=== PATIENT | female | born 1995 | race African-American/Black ===

== ENCOUNTER 2020-12-28 17:32 | Emergency (ER) | payer BC, SELFPAY ==
--- NOTE | ~2020-12-28 | CT_ITS ---
EXAMINATION: CT abdomen pelvis w con DATE: 12/28/2020 23:56 INDICATION: Abdominal pain TECHNIQUE: Computed tomography (CT) of the abdomen and pelvis was performed with 100 mL Omnipaque-350 intravenous contrast. Automated exposure control and iterative reconstruction technique were employe d. The dose-length product was 1260.44 mGy-cm. COMPARISON: None FINDINGS: Mild dependent atelectasis at the posterior sulcus of the left lower lobe. Heart size is normal. No p ericardial or pleural effusion. Liver, gallbladder, spleen, pancreas, bilateral adrenal glands and ki dneys are normal. Fluid throughout the colon consistent with diarrhea. No abnormal bowel wall thicken ing or obstruction. Appendix is normal. Bladder, anteverted uterus and bilateral adnexa are unremarka ble. No free intraperitoneal gas or fluid. No pathologically enlarged abdominal or pelvic lymphadenop athy. Mild degenerative skeletal changes in the spine and bilateral hips. IMPRESSION: 1. Diarrhea of indeterminate etiology. No other acute intra-abdominal/pelvic process. Reviewed, dictated and finalized at location A. WORKER IMPRESSION: 1. Diarrhea of indeterminate etiology. No other acute intra-abdominal/pelvic pr ocess.
[2020-12-28 18:35] VITALS: BP 129/70; PULSE 110; RESP 20; TEMP 36.6; O2SAT 100
[2020-12-28 18:45] LABS: Glucose Point of Care 216 mg/dl (65-105)
[2020-12-28 19:52] LABS: Basophils Absolute Auto 0.1 K/mm3 (0.0-0.1); Basophils Percent Auto 0.5 % (0.2-1.2); Hematocrit 47.5 % (37.0-47.0); Hemoglobin 15.4 g/dL (12.0-15.0); Immature Granulocyte Absolute 0.12 K/mm3 (0.00-0.031); Immature Granulocyte Percent A 0.5 % (0-0.5); Lymphocytes Absolute Auto 1.17 K/mm3 (0.9-3.2); Lymphocytes Percent Auto 4.7 % (18.3-44.2); Mean Corpuscular HGB Conc 32.4 g/dl (32-36); Mean Corpuscular Hemoglobin 27.4 pg (26-34); Mean Corpuscular Volume 84.4 fl (80-100); Mean Platelet Volume 11.2 fl (7.4-10.4); Monocytes Absolute Auto 1.5 K/mm3 (0.1-0.6); Monocytes Percent Auto 5.9 % (2.6-8.5); Neutrophils Absolute Auto 21.9 K/mm3 (1.3-6.7); Neutrophils Percent Auto 88.4 % (45.5-73.1); Platelet Count Result 312 k/mm3 (150-375); Red Blood Count 5.63 M/mm3 (4.2-5.4); Red Cell Distribution Width 13.5 % (11.5-14.5); White Blood Count 24.8 K/mm3 (4.5-10.0)
[2020-12-28 20:05] LABS: Alanine Aminotransferase 26 U/L (4-35); Albumin Level 5.1 g/dL (3.5-5.1); Alkaline Phosphatase 75 U/L (38-126); Anion Gap 15 mmol/L (8-16); Aspartate Amino Transferase 33 U/L (14-36); Bilirubin,Total 0.3 mg/dL (0.2-1.3); Blood Urea Nitrogen 9 mg/dL (7-17); Carbon Dioxide 24 mmol/L (22-30); Chloride 103 mmol/L (98-107); Estimated CRCL calculation 122 ml/min; Estimated Glomerular Filt Rate > 60; Glucose 204 mg/dL (65-110); Magnesium 1.7 mg/dL (1.6-2.3); Phosphorus 3.9 mg/dL (2.5-4.5); Potassium 4.5 mmol/L (3.4-5.0); Sodium 142 mmol/L (137-145)
[2020-12-28 20:09] LABS: Beta-Hydroxybutyrate/Acetoacetate 0.27 mmol/L (0.02-0.27)
[2020-12-28 22:07] VITALS: BP 114/67; PULSE 93; RESP 18; TEMP 37.1; O2SAT 98
--- NOTE | 2020-12-28 22:11 | ED.NAVMDI ---
HPI - Nausea/Vomiting/Diarrhea General Chief complaint: Nausea/Vomiting/Diarrhea Stated complaint: n/v/d Time Seen by Provider: 12/28/20 22:10 Source: patient Mode of arrival: ambulatory Limitations: no limitations History of Present Illness HPI Narrative: Patient is a 25-year-old female complaining of nausea, vomiting and diarrhea that started 2 hours ago. Patient also pain that her blood sugar was elevated 240s . Patient describes her vomitus as nonbilious, nonbloody. Patient describes her diarrhea as loose watery, nonbloody. Patient denies any chest pain, shortness of breath, abdominal pain, urinary symptoms, fever or chills. Related Data Allergies Allergy/AdvReac Type Severity Reaction Status Date / Time No Known Allergies Allergy Verified 12/28/20 22:13 Review of Systems Review of Systems: All systems reviewed & are unremarkable except as noted in HPI and below Constitutional: Constitutional: Denies body ache(s), Denies chills, Denies excessive sweating, Denies fatigue, Denies fever(s), Denies headache(s), Denies lethargy, Denies malaise, Denies weakness and Denies weight loss Eyes: Eyes: Denies blurry vision, Denies change in vision and Denies loss of vision ENT: Denies dizziness, Denies ear discharge, Denies headache(s), Denies lip swelling, Denies epistaxis, Denies nasal congestion, Denies neck pain, Denies throat swelling and Denies tongue swelling Cardiovascular: Cardiovascular: Denies chest pain, Denies chest pain at rest, Denies chest pain with activity, Denies diaphoresis, Denies rapid heart rate, Denies edema, Denies irregular heart rhythm, Denies lightheadedness, Denies palpitations, Denies dyspnea and Denies dyspnea on exertion Respiratory: Respiratory: Denies chest congestion, Denies cough, Denies hemoptysis, Denies dyspnea and Denies dyspnea on exertion Gastrointestinal: Gastrointestinal: Denies abdominal pain, Denies melena, Denies hematochezia and Denies hematemesis Musculoskeletal: Musculoskeletal: Denies abnormal gait, Denies deformity, Denies joint swelling, Denies limited range of motion, Denies neck pain and Denies numbness Neurologic: Denies Abnormal speech present, Denies abnormal gait, Denies confusion, Denies dizziness, Denies headache(s), Denies focal weakness, Denies loss of vision, Denies numbness, Denies Other visual disturbances, Denies Sensory deficit (Neuro) and Denies weakness Psychiatric: Psychiatric: Denies confusion, Denies depression, Denies auditory hallucinations, Denies homicidal ideation and Denies suicidal ideation Endocrine: Endocrine: Denies cold intolerance, Denies excessive sweating, Denies fatigue, Denies heat intolerance and Denies palpitations Hematologic/Lymphatic: Hematologic/Lymphatic: Denies easy bleeding and Denies easy bruising Allergic/Immunologic: Allergic/Immunologic: Denies lip swelling, Denies throat swelling and Denies tongue swelling PMFSH Comments Past medical history: Diabetes Family history: Diabetes Social history: Non-smoker no EtOH or drug use Exam Const: General: cooperative, healthy appearing, comfortable, no acute distress, well developed, alert and awake; No confusion Orientation/consciousness: oriented to person, oriented to place, oriented to time, patient oriented x3 and No confusion Limitations: no limitations HENMT: Head: normal to inspection, normocephalic and atraumatic Ears: hearing grossly normal bilaterally, TM normal on the right and TM normal on the left General nose exam: Normal external nose present, Normal nares present and No nasal discharge present Face and sinus: normal facial exam Mouth: Yes Normal oral and palatal mucosa present, Yes lip normal, Yes tongue normal and Yes oropharynx normal Throat: posterior oropharynx normal, tonsils normal and uvula midline Eyes: General: appearance normal, both eyes and all related structures Pupils: Equal, round and reactive pupils present EOM: EOMs intact bilaterally Neck: Neck: normal v
[2020-12-28 23:03] LABS: Glucose Point of Care 146 mg/dl (65-105)
[2020-12-28 23:18] LABS: Add Urine Microscopic? YES; Appearance Urine Cloudy (Clear); Bilirubin Urine Negative (Negative); Blood Urine 2+ (Negative); Color Urine Yellow (Yellow); Glucose Urine UA 1+ mg/dL (Negative); Ketones Urine 1+ mg/dL (Negative); Leukocyte Esterase Ur Negative LEU/UL (Negative); Mucus Urine Moderate /lpf; Nitrate Urine Negative (Negative); Protein Urine 2+ mg/dL (Negative); RBC Urine 0-2 /hpf (0-2); Specific Grav Ur 1.028 (1.001-1.035); Squamous Epithelial Cell Urine Rare /hpf (Few); Urobilinogen Urine Negative mg/dL (<2.0); WBC Urine 0-3 /hpf
[2020-12-28] MEDS: SODIUM CHLORIDE 0.9% IV 1,000 ML 999 ML IV CONT (23:33)
--- NOTE | 2020-12-28 23:41 | PCRCNOTE ---
Unable to obtain ABG after multiple attempts. Physician notified.
[2020-12-29 00:26] LABS: Lactic Acid Reflex 1.7 mmol/L (0.7-2.1)
[2020-12-29 00:34] VITALS: BP 115/75; PULSE 89; RESP 20; O2SAT 98
[2020-12-29] MEDS: LACTATED RINGERS 1,000 ML 999 ML IV CONT (00:48)
[2020-12-29] MEDS: metroNIDAZOLE 500 MG/ISO 100ML 500 MG/100 ML BAG 100 MG IVPB (01:22)
[2020-12-29 02:21] VITALS: BP 125/74; PULSE 94; RESP 16; O2SAT 100
== END 2020-12-29 02:25 | disposition home or self-care (01) ==
PROVIDERS: Emergency Medicine; Emergency Provider Emergency Medicine
DX: K52.9 Noninfective gastroenteritis and colitis, unspecified (principal); E11.9 Type 2 diabetes mellitus without complications
CPT/HCPCS: 36415; 74177; 80053; 81001; 81025; 82010; 82948; 83605; 83735; 84100; 85025; 96361; 96365; 96367; 99284; J0696; J7030; J7120; Q9967

== ENCOUNTER 2024-10-18 18:03 | Emergency (ER) | payer OTHER, SELFPAY ==
[2024-10-18] VITALS (27 sets, daily range): BP systolic 106–147; BP diastolic 60–113; PULSE 77–122; RESP 18–20; TEMP 36.6–36.8; O2SAT 87–100
--- NOTE | ~2024-10-18 | CT_ITS ---
EXAMINATION: CT abdomen pelvis w con DATE: 10/18/2024 20:36 INDICATION: Epigastric pain TECHNIQUE: Computed tomography (CT) of the abdomen and pelvis was performed without intravenous contrast. The dose-length product was 1237.28 mGy-cm. Automated exposure control and iterative reconstruction technique were employed. COMPARISON: CT dated 12/28/2020 FINDINGS: Lung bases unremarkable. Heart size normal. Fatty infiltration of the liver. Gallbladder present. The spleen, pancreas, adrenal glands and kidneys are unremarkable. Nonobstructive bowel gas pattern. No free air or free fluid. No significant vascular abnormality. No lymphadenopathy. There is mild thickening of the gastric wall which may be due to underdistention or gastritis. No acute osseous abnormality. IMPRESSION: 1. Mild thickening of the gastric wall which may be due to underdistention or gastritis. Clinically correlate. Reviewed, dictated and finalized at location O. IMPRESSION: 1. Mild thickening of the gastric wall which may be due to underdistention or g astritis. Clinically correlate.
[2024-10-18 19:34] LABS: Hematocrit 42.7 % (37.0-47.0); Hemoglobin 13.9 g/dL (12.0-15.0); Immature Granulocyte Percent A 0.5 % (0-0.5); Lymphocytes Absolute Auto 1.36 K/mm3 (0.9-3.2); Mean Corpuscular HGB Conc 32.6 g/dl (32-36); Mean Corpuscular Hemoglobin 26.2 pg (26-34); Mean Corpuscular Volume 80.4 fl (80-100); Nucleated Red Blood Cells Absolute Auto 0.000 K/mm3 (0.0-0.012); Nucleated Red Blood Cells Perc 0.0 % (0.0-0.2); Platelet Count Result 288 k/mm3 (150-375); Red Blood Count 5.31 M/mm3 (4.2-5.4); White Blood Count 9.5 K/mm3 (4.5-10.0)
--- NOTE | 2024-10-18 19:39 | ED_ITS ---
HPI - General Adult General Chief complaint: Nausea/Vomiting/Diarrhea Stated complaint: N,V, dehydration headache Time Seen by Provider: 10/18/24 19:12 History of Present Illness HPI narrative: Patient is a 29-year-old female who presents emergency department this evening complaining of nausea, vomiting, dehydration and headache. States that her symptoms started this morning. Also complains of epigastric pain and states that in the past she has had similar symptoms and was diagnosed with colitis. Denies any sick contacts at home or anyone at home with similar symptoms. Any fevers or chills. There are no additional modifying, alleviating, or precipitating factors at this time. Related Data Allergies Allergy/AdvReac Type Severity Reaction Status Date / Time No Known Allergies Allergy Verified 10/18/24 18:04 Review of Systems 2 Review of Systems: All systems are reviewed and are negative unless stated otherwise in the HPI. Exam 2 Narrative: General: Alert, awake, afebrile, in no acute distress. HEENT: PERRL, no rhinorrhea, no post nasal drip, oropharynx clear. Neck: Trachea midline, no JVD, no lymphadenopathy. Cardiovascular: Tachycardic with regular rhythm, no murmurs, rubs or gallops, no peripheral edema. Respiratory: Clear to auscultation bilaterally, no tachypnea, no wheezing, no rhonchi, no rubs, no respiratory distress. Abdomen: Soft, nontender, nondistended, no rebound, no guarding, no peritoneal signs. Musculoskeletal: No joint swelling or deformity, normal muscle tone. Skin: No rashes or petechia, no signs of infection. Psychiatric: Alert and oriented, normal behavior and judgment for situation. Neurological: Alert and oriented to person, place, and time. Follows all commands. No focal deficits, speech is clear and fluent. Course Vital Signs Vital signs: Vital Signs Temperature 98.2 F 10/18/24 18:06 Pulse Rate 122 H 10/18/24 18:06 Respiratory Rate 10/18/24 18:06 Blood Pressure 116/78 10/18/24 18:06 Pulse Oximetry 99 10/18/24 18:06 Oxygen Delivery Room Air 10/18/24 18:06 Temperature 98.2 F 10/18/24 18:06 Pulse Rate 122 H 10/18/24 18:06 Respiratory Rate 20 10/18/24 18:06 Blood Pressure 116/78 10/18/24 18:06 Pulse Oximetry 99 10/18/24 18:06 Oxygen Delivery Room Air 10/18/24 18:06 Medical Decision Making MDM Narrative Medical decision making narrative: The patient was evaluated by myself in the emergency department. History is obtained from patient who is an independent historian and physical exam was performed. External medical records were reviewed at this time. IV was established and pertinent tests were ordered. Patient was administered 2 L IV fluid bolus with normal saline, 2 mg IV morphine for pain and 4 mg IV Zofran for nausea. Laboratory results obtained revealing no acute process. Imaging studies obtained included CT abdomen pelvis with IV contrast which was independently interpreted by me revealing: IMPRESSION: 1. Mild thickening of the gastric wall which may be due to underdistention or gastritis. Clinically correlate. Differential diagnosis considerations include acute viral syndrome, dehydration, electrolyte derangements, gastroenteritis. Comorbidities impacting this visit include none. I have evaluated and discussed social determinants of health with the patient that could potentially impact subsequent diagnosis and treatment plans. On repeat assessment of the patient, reevaluation revealed that the patient is doing well and is in no acute distress. Patient symptoms have improved since she arrived to our emergency department. Repeat vital signs were all reviewed and noted to be stable. Differential diagnosis and treatment plan were discussed with the patient at bedside. Patient agrees with discussion and after shared medical decision making agrees with admission. All questions were answered to the patient's satisfaction. Patient will follow up with her PCP in 3-5 days. A script for Zofran was sent to patient's pharmacy to use as needed for nausea/vomiting. Patient was provided with strict return precautions and instructed to return to the emergency department if any new or worsening symptoms develop. The patient was discharged in stable condition. Vital Signs Vital Signs: Vital Signs Temperature 98.2 F 10/18/24 18:06 Pulse Rate 122 H 10/18/24 18:06 Respiratory Rate 20 10/18/24 18:06 Blood Pressure 116/78 10/18/24 18:06 Pulse Oximetry 99 10/18/24 18:06 Oxygen Delivery Room Air 10/18/24 18:06 Temperature 98.2 F 10/18/24 18:06 Pulse Rate 122 H 10/18/24 18:06 Respiratory Rate 20 10/18/24 18:06 Blood Pressure 116/78 10/18/24 18:06 Pulse Oximetry 99 10/18/24 18:06 Oxygen Delivery Room Air 10/18/24 18:06 Lab Data 10/18/24 19:30 10/18/24 19:30 Labs: Lab Results 10/18/24 Range/Units 19:30 WBC 9.5 (4.5-10.0) K/mm3 RBC 5.31 (4.2-5.4) M/mm3 Hgb 13.9 (12.0-15.0) g/dL Hct 42.7 (37.0-47.0) % MCV 80.4 (80-100) fl MCH 26.2 (26-34) pg MCHC 32.6 (32-36) g/dl RDW 14.6 H (11.5-14.5) % Plt Count 288 (150-375) k/mm3 MPV 10.4 (7.4-10.4) fl Immature Gran % (Auto) 0.5 (0-0.5) % Neut % (Auto) 80.2 H (45.5-73.1) % Lymph % (Auto) 14.3 L (18.3-44.2) % [place] % (Auto) 4.7 (2.6-8.5) % Eos % (Auto) 0.0 (0-4.4) % Baso % (Auto) 0.3 (0.2-1.2) % Lymph # (Auto) 1.36 (0.9-3.2) K/mm3 [place] # (Auto) 0.5 (0.1-0.6) K/mm3 Eos # (Auto) 0.0 (0-0.3) K/mm3 Baso # (Auto) 0.0 (0.0-0.1) K/mm3 Abs Immat Gran (auto) 0.05 H (0.00-0.031) K/mm3 Absolute Neuts (auto) 7.6 H (1.3-6.7) K/mm3 Absolute Nucleated RBC 0.000 (0.0-0.012) K/mm3 Nucleated RBC % 0.0 (0.0-0.2) % Sodium 136 L (137-145) mmol/L Potassium 3.7 (3.4-5.0) mmol/L Chloride 101 (98-107) mmol/L Carbon Dioxide 25 (22-30) mmol/L Anion Gap 10 (4-12) mmol/L BUN 10 (7-17) mg/dL Creatinine 0.64 L (0.7-1.0) mg/dL Estim Creat Clear Calc 138 ml/min Estimated GFR > 60 (59 - ) Glucose 221 H (65-110) mg/dL Lactic Acid 1.3 (0.7-2.0) mmol/L Calcium 8.8 (8.4-10.2) mg/dL Magnesium 1.7 (1.6-2.3) mg/dL Total Bilirubin 0.5 (0.2-1.3) mg/dL AST 34 (14-36) U/L ALT 31 (6-35) U/L Alkaline Phosphatase 79 (38-126) U/L Total Protein 8.1 (6.3-8.2) g/dL Albumin 4.4 (3.5-5.1) g/dL Lipase 93 (23-300) U/L Serum HCG, Qual Negative Discharge Plan Discharge Clinical Impression: Nausea & vomiting Patient Disposition: Home Condition: Improved Instructions: Antibiotic Form, Acute Nausea and Vomiting (ED) Additional Instructions: Please follow-up with the family doctor within the next 3-5 days. Return to the emergency department if any new or worsening symptoms develop. Take the prescribed Zofran as needed for nausea/vomiting. Patient Language: Swazi Prescriptions: New ondansetron 4 mg tablet,disintegrating 4 mg PO Q8H PRN (Reason: nausea and vomiting) Qty: 10 0RF No Action metronidazole 500 mg tablet 500 mg PO Q8H Qty: 21 0RF Follow-up/Referrals: Stephy Cespedes MD [Physician, Family Practice] - 3 Days PHYSICIAN NOT ON STAFF,NONSTAFF [Primary Care Provider] Time of Disposition: 20:49
[2024-10-18 19:41] LABS: SPREG INTERNAL CONTROL Positive; Serum Qual hCG Negative
[2024-10-18] MEDS: SODIUM CHLORIDE 0.9% IV 1,000 ML 999 ML IV CONT ×2 (19:42→21:03)
[2024-10-18] MEDS: ONDANSETRON INJ 4 MG/2 ML VIAL IV PUSH (19:43)
[2024-10-18] MEDS: MORPHINE SULFATE (*CRX) 2 MG/ML INJ IV PUSH (19:44)
[2024-10-18 19:47] LABS: Alanine Aminotransferase 31 U/L (6-35); Albumin Level 4.4 g/dL (3.5-5.1); Alkaline Phosphatase 79 U/L (38-126); Anion Gap 10 mmol/L (4-12); Aspartate Amino Transferase 34 U/L (14-36); Bilirubin,Total 0.5 mg/dL (0.2-1.3); Blood Urea Nitrogen 10 mg/dL (7-17); Calcium 8.8 mg/dL (8.4-10.2); Carbon Dioxide 25 mmol/L (22-30); Chloride 101 mmol/L (98-107); Estimated CRCL calculation 138 ml/min; Estimated Glomerular Filt Rate > 60; Glucose 221 mg/dL (65-110); Lipase 93 U/L (23-300); Magnesium 1.7 mg/dL (1.6-2.3); Potassium 3.7 mmol/L (3.4-5.0); Sodium 136 mmol/L (137-145); Total Protein 8.1 g/dL (6.3-8.2)
== END 2024-10-18 23:17 | disposition home or self-care (01) ==
PROVIDERS: Emergency Provider Emergency Medicine
DX: R11.2 Nausea with vomiting, unspecified (principal)
CPT/HCPCS: 36415; 74177; 80053; 83605; 83690; 83735; 84703; 85025; 96361; 96374; 96375; 99284; J2270; J2405; J7030; Q9967

== ENCOUNTER 2024-11-04 12:25 | Emergency (ER) | payer OTHER, SELFPAY ==
--- OUTSIDE RECORDS SUMMARY | 2019-10-28 06:04 | XMS_ITS | Continuity of Care Document ---
Author Organization [facility] Address [address] [place] [address] Phone Care Team Providers Care Superintendent Service Name Role Phone René Turner MD Unavailable Unavailable Advance Directives Directive Yes / No Effective Date File Name No Information Encounters Encounter Description Practice Location Reason(s) For Visit Diagnoses Date Provider Providers Copied on Encounter [facility] , [address], [place], [place], [id number], [place] tel:[phone] [facility] [place] No Information Johnny Merritt. [address], [place], [place], [id number], [place]. tel:[phone] Family History Family Member Type Diagnosis Age At Onset No Information Payers Payer name Insurance type Covered libertarian ID Authoriza tion(s) No Information Social History Type Description Quantity Date Captured Comments Sex Female Smoking Status No Information Chief Complaint And Reason For Visit No Information Reason For Referral Reason For Referral No Information History Of Present Illness Encounter Date Complaint History Of Prese nt Illness No Information Functional Status Date Functional Assessmen t No Information Instructions Date Instruction Additional Infor mation No Information Assessments Type Assessment Date No Information Patient Care Teams Name Effective Dates (start - stop) Status Members No Information
--- OUTSIDE RECORDS SUMMARY | 2019-10-28 06:04 | XMS_ITS | Continuity of Care Document ---
Author Organization [facility] Address [address] [place] [address] Phone Care Team Providers Care Lodging House Keeper Name Role Phone René Turner MD Unavailable Unavailable Advance Directives Directive Yes / No Effective Date File Name No Information Encounters Encounter Description Practice Location Reason(s) For Visit Diagnoses Date Provider Providers Copied on Encounter [facility] , [address], [place], [place], [id number], [place] tel:[phone] [facility] [place] No Information Johnny Merritt. [address], [place], [place], [id number], [place]. tel:[phone] Family History Family Member Type Diagnosis Age At Onset No Information Payers Payer name Insurance type Covered alliance party ID Authoriza tion(s) No Information Social History [...]
--- NOTE | ~2024-11-04 | CT_ITS ---
Exam: CT abdomen and pelvis with contrast Clinical History: [Epigastric pain. Nausea and vomiting ] Comparison: [ 10/18/2024] Technique: Multiple axial CT images of the abdomen and pelvis were obtained with IV contrast. Sagittal and coronal reformatted images were obtained. FINDINGS: Lung bases: [Small opacities in the lower lungs. ] Liver: [Fatty liverNo mass.] [ No intrahepatic biliary duct dilatation.] Gallbladder: [ No wall thickening or stones.] Common bile duct: [ Normal caliber.] [ No stones.] Spleen: [ Within normal limits.] Pancreas: [ No mass. No pancreatic fluid collection.] Adrenals: [ No masses.] Kidneys: [ No masses. No hydronephrosis.][ ] Lymph nodes: [ No adenopathy in the abdomen or pelvis.] Stomach, small bowel and colon: [ No bowel wall thickening or obstruction.] Peritoneum cavity: [ No mesenteric fat stranding or fluid.] Bladder: [ Unremarkable.] Osseous structures: [ No acute fracture or destructive lesion.] [ Multilevel degenerative change in the visualized spine.] Abdominal aorta: [ No aneurysm.] Additional findings: [ None of significance.] IMPRESSION: 1. No CT evidence for an acute process in the abdomen and pelvis at this time. 2. Fatty liver. Reviewed, dictated and finalized at location Q.
--- NOTE | ~2024-11-04 | CT_ITS ---
EXAMINATION: CT BRAIN W/O DATE: 11/04/2024 15:29 INDICATION: Left periorbital headache. Nausea and vomiting. TECHNIQUE: Computed tomography (CT) of the head was performed without intravenous contrast. The dose-length product was 605.33 mGy-cm. Automated exposure control and iterative reconstruction technique were employed. COMPARISON: No prior studies for comparison. FINDINGS: Normal brain parenchymal volume for age. Normal rod-white differentiation. No acute intracranial hemorrhage, infarction, mass or mass effect. No ventriculomegaly or midline shift. Midline sagittal images demonstrate a normal corpus callosum, craniovertebral junction and sella turcica. Basilar cisterns are patent. Paranasal sinuses and mastoids are pneumatized. No depressed skull fractures. IMPRESSION: 1. No acute intracranial abnormality. Reviewed, dictated and finalized at location O.
[2024-11-04 12:31] VITALS: BP 142/95; PULSE 108; RESP 20; TEMP 36.8; O2SAT 98
--- OUTSIDE RECORDS SUMMARY | 2024-11-04 12:57 | XMS_ITS | Clinical Summary ---
Author Organization [facility] [employer] Address [address] [place] [address] Care Team Providers Care Customer Account Specialist Name Role Phone Shaye Appiah MD Primary Care Provider [phone] Source Comments [facility] [employer],non-owned Affiliates and Associated Physician Practices is amultiple site organization consisting of ambulatory clinics and hospital sitesin [place], [place], [place] and [place]. This disclosure is being madepursuant to the Care Everywhere program and may not contain all information available regarding this patient. Last updated 17.[facility] [employer] Allergies No known active allergies Medications * Be aware that medications may not be up to date on this document. Alwaysverify current medications with the patient. Blood Glucose Monitoring Suppl (ONE TOUCH ULTRA MINI) W/DEVICE KITIndications:D iabetes mellitus Use for blood glucose monitoring. 1 Kit 1 12/17/19 11 Active ONETOUCH DELICA LANCETS 30G MISCIndications: Type 2 diabetes mellitus with hyperglycemia, without long-term current use of insulin (HCC) Use 1 Each 2 times daily 200 Each 11 01/01/20 20 Active metFORMIN ER 24hr (Glucophage XR) 500 MG tabletIndication s:Type 2 diabetes mellitus with hyperglycemia, without long-term current use of insulin ([facility]) Take 2 (two) tablets by mouth every evening 90 tablet 1 05/01/19 25 Active Semaglutide (2 MG/DOSE) 8 MG/3ML Subcutaneous Solution Pen-injector (Ozempic (2 MG/DOSE))Indicat ions:Type 2 diabetes mellitus with hyperglycemia, without long-term current use of insulin ([facility]) Inject 2 (two) mg subcutaneously every 7 days 9 mL 1 05/01/19 25 Active blood glucose (ONETOUCH ULTRA TEST STRIPS) test stripIndications :Type 2 diabetes mellitus with hyperglycemia, without long-term current use of insulin (HCC) Use 2 times daily 200 strip 05/01/19 Active spironolactone (Aldactone) 25 MG tablet Take 1 (one) tablet by mouth once daily 90 tablet 05/01/19 25 Active Active Problems Problem Noted Date Diagnosed Date Type 2 diabetes mellitus wit hout complication, without long-term current use of insulin 04/30/2024 Hirsutism 04/30/2024 Obesity 04/30/2024 PCOS (polycystic ovarian syndrome) 02/23/2023 02/23/2023 Family history of colon cancer in father 024 Cervicitis 07/03/2015 Diabetes mellitus 12/14/2010 Overview (09/29/2011): Diagnosed 12/14/2010 Resolved Problems Problem Noted Date Diagnosed Date Resolved Date Closed head injury 10/13/2019 5 Immunizations Immunization Administration Dates Next Due DTaP VACCINE IM (6wk-6yrs) 06/17/1999 Human Papilloma Virus Ninevalent Vaccine 019 Human Papilloma Virus Quadrivalent Vaccine 05/08,03/03/2017,09/10/2013 INFLUENZA VACCINE, QUADR. (F LUZONE; FLULAVAL; FLUARIX; AFLURIA QUADRIVALENT; 6MO+), 0.5 ML (IIV4) 12/22/2021 MMR VACCINE 06/17/1999 PNEUMOCOCCAL PCV20 CONJ VAC IM 12/22/2021 POLIO OPV 06/17/1999 Family History Medical History Relation Name Comments Cancer - Colon Father Diabetes Father steroid-induced Heart Failure Father Hypercholesterolemia Father Diabetes - Type 2 Maternal Grandmother Cancer - Breast Paternal Aunt great aunt Cancer - Breast Paternal Great-Grandmother Cancer - Colon Paternal Uncle Diabetes Sister Relation Name Status Comments Father Alive colon cancer di agnosed age 57 Maternal Grandfather Alive Maternal Grandmother Alive Mother Alive Paternal Aunt great aunt Paternal Grandfather Alive Paternal Grandmother Alive Paternal Great-Grandmother Paternal Uncle Alive diagnosed in late 40s Sister Alive Social History Tobacco Use Types Packs/Day Years Used Date Smoking Tobacco: Never Passive Smoke Exposure: Never Smokeless Tobacco: Never Tobacco Cessation:Counseling Given: Not Answered Alcohol Use Standard Drinks/Week Comments Yes 0 (1 standard drink = 0.6 oz pur e alcohol) occ AUDIT-C Answer Date Recorded Q1: How often do you have a drink containing alcohol? Never 07/06/2022 Q2: How many drinks containi ng alcohol do you have on a typical day when you are drinking? Patient does not drink Q3: How often do you have si x or more drinks on one occasion? Never 07/06/2022 PHQ-2 Answer Date Recorded Patient Health Questionnaire-2 Score 0 04/23/2024 Comments No Sex and Gender Information Value Date Recorded Sex Assigned at Female 02/12/2021 9:07 AM ILLUMINATOR Legal Sex Female 2:20 PM CDT Gender Identity Female 02/12/2021 9:07 AM ILLUMINATOR Sexual Orientation Straight 02/12/2021 9: 07 AM ILLUMINATOR Last Filed Vital Signs Vital Sign Reading Time Taken Comments Blood Pressure 118/80 04/30/2024 1:38 PM CDT Pulse 96 04/30/2024 1:38 PM CDT Temperature 36.9 C (98.4 F) 07/06/2022 12:47 AM CDT Respiratory Rate 14 07/06/2022 4:28 AM CDT Oxygen Saturation 98% 04/30/2024 1:38 PM CDT Inhaled Oxygen Concentration - - Weight 103.9 kg (229 lb) 04/30/2024 1:38 PM CDT Height 170.2 cm (5' 7) 04/30/2024 1:38 PM CDT Body Mass Index 35.87 04/30/2024 1:38 PM CDT Plan of Treatment Upcoming Encounters Date Type Department Care Team (Late st Contact Info) Description 11/22/2024 11:45 AM CDT Office Visit [facility] - Endocrinology [address] [address] [place] [id number] [address] Health Maintenance Due Date Last Done Comments DTAP/TDAP/TD VACCINES (2 - Tdap) 2013 06/17/1999 HEPATITIS B VACCINE (1 of 3 - 19+ 3-dose series) 2013 DIABETES RETINOPATHY SCREENING 10/18/2018 DIABETES - URINE PROTEIN SCREENING 02/14/2024 08/07/2023, 08/26/2021, 08/01/2019, Additional history exists COVID-19 VACCINE ( season) 2024 02/17/2021, 06/01/2020, 05/10/2020 INFLUENZA VACCINE (#1) 2024 12/22/2021 DIABETES-HGB A1C 10/31/2024 04/30/2024, , 07/20/2022, Additional history exists PAP SMEAR 02/22/2025 02/22/2022, 09/2020, 02/15/2019, Additional history exists DIABETES-SERUM CREATININE 04/30/20252024, 08/07/2023, 07/06/2022, Additional history exists DIABETES-FOOT EXAM WITH MONOFILAMENT 05/01/2025 05/01/2024 ZOSTER VACCINE (1 of 2) 2044 HPV VACCINE Completed 02/14/2018, 04/14, 03/03/2017, Additional history exists PNEUMOCOCCAL VACCINE Completed 12/22/2021 DEPRESSION SCREENING Completed 04/30/2024, 02/16/2023, 08/26/2021 HEPATITIS C SCREENING Completed 04/30/2024 , 02/22/2022, 08/25/2021, Additional history exists HIV SCREENING Completed 04/30/2024, 02/13, 02/22/2022, Additional history exists HIB VACCINE Aged Out No longer eligi ble based on patient's age to complete this topic MENINGOCOCCAL (Group B) VACCINE SHARED DECISION-MAKING Aged Out No longer eligible based on patient's age to complete this topic MENINGOCOCCAL GROUPS A/C/Y/W VACCINE Aged Out No longer eligible based on patient's age to complete this topic Procedures Procedure Name Priority Date/Time Associated Diagnosis Comments BASIC METABOLIC PANEL (CALCIUM TOTAL) Routine 04/30/2024 2:49 PM CDT HEPATITIS C ANTIBODY W RFLX PCR Routine 04/30/2024 2:49 PM CDT Well woman exam with routine gynecological exam Screening for venereal disease HIV-1 HIV-2 ANTIBODY + HIV P24 AG PANEL Routine 04/30/2024 2:49 PM CDT Well woman exam with routine gynecological exam Screening for venereal disease HEMOGLOBIN A1C - POINT OF CARE (AMB) Routine 04/30/2024 2:29 PM CDT Type 2 diabetes mellitus with hyperglycemia, without long-term current use of insulin MICROALB/CREAT RATIO URINE RANDOM PANEL 08/07/2023 12:44 PM CDT PAP IG LB+CT+NG+TV+HPV APTIMA RFLX Routine 02/22/2022 2:36 PM ILLUMINATOR History of abnormal cervical Pap smear Well woman exam with routine gynecological exam Screen for STD (sexually transmitted disease) History of HPV infection from Last 3 Months or Most Recently Relevant to Health Maintenance Results * HEPATITIS C ANTIBODY W RFLX PCR (04/30/2024 2:49 PM CDT) Hepatitis C Antibody Non Reactive Non Reactive [facility] ACCOUNT BILL Comment: Performed at: - [facility] [address] [id number] Histotechnologist: Jhonatan Ponce PhD, Phone: [phone] Interpretation Comment [facility] ACCOUNT BILL Comment: Not infected with HCV unless early or acute infection is suspected (which may be delayed in an immunocompromised individual), or other evidence exists to indicate HCV infection. Blood BLOOD SPECIMEN / Unknown 04/30/2024 2:49 PM CDT 04/30/2024 Narrative [facility] ACCOUNT BILL - 05/01/2024 8:11 AM CDT Performed at: - [facility] [address] [id number] Histotechnologist: Jhonatan Ponce PhD, Phone: [phone] us Arianna Chaney MOWER MECHANIC-SPRAY GUN REPAIRER HELPER LAB - CHEMISTRY ORDERABLE S Final Result Performing Organization Address City/[facility]/ZIP Co de Phone Number [facility] ACCOUNT BILL [address] [place] [address] * HIV-1 HIV-2 ANTIBODY + HIV P24 AG PANEL (04/30/2024 2:49 PM CDT) Pathologist [facility] HIV Screen 4th Generation w Reflex Non Reactive Non Reactive [facility] ACCOUNT BILL Comment: HIV-1/HIV-2 antibodies and HIV-1 p24 antigen were NOT detected. There is no laboratory evidence of HIV infection. HIV Negative Blood BLOOD SPECIMEN / Unknown 04/30/2024 2:49 PM CDT 04/30/2024 Narrative [facility] ACCOUNT BILL - 05/01/2024 9:10 AM CDT Performed at: 01 - [address] [id number] Histotechnologist: Jhonatan Ponce PhD, Phone: [phone] Arianna Chaney APRN-SPRAY GUN REPAIRER HELPER LAB - CHEMISTRY ORDERABLE S Final Result Performing Organization Address [facility] Co de Phone Number [facility] ACCOUNT BILL [address] [place] [address] * (ABNORMAL) BASIC METABOLIC PANEL (CALCIUM TOTAL) (04/30/2024 2:49 PM CDT) [facility] Glucose 131(H) 70 - 99 mg/dL [facility] INSURANCE BILL BUN 10 5.3 - 18.7 mg/dL [facility] INSURANCE BILL Creatinine 0.77 0.57 - 1.11 mg/dL [facility] INSURANCE BILL eGFR by CKD-EPI >90 >=90 mL/min/1.7 3 m2 [facility] INSURANCE BILL Sodium 140 136 - 145 mmol/L [facility] INSURANCE BILL Potassium 4.2 3.5 - 5.1 mmol/L [facility] INSURANCE BILL Chloride 106 98 - 107 mmol/L [facility] INSURANCE BILL CO2 26 22 - 29 mmol/L [facility] INSURANCE BILL Calcium 9.3 8.4 - 10.4 mg/dL [facility] INSURANCE BILL 04/30/2024 2:49 PM CDT 04/30/2024 Narrative [facility] INSURANCE BILL - 05/08/2024 11:11 AM CDT Performed at: [place] [address], [place] [id number] Histotechnologist: Saad Lezama [facility], Phone: [phone] us Marilee Nye MOWER MECHANIC-SPRAY GUN REPAIRER HELPER LAB - CHEMISTRY ORDERABLE S Final Result [facility] INSURANCE BILL [address] [place] [address] * HEMOGLOBIN A1C - POINT OF CARE (HgbA1C) (04/30/2024 2:29 PM CDT) [facility] Hemoglobin A1c POCT 7.9 % Expiration Date 01/24/25 Lot # [id number] QC Verified Yes Yes Blood BLOOD SPECIMEN / Unknown 04/30/2024 2:29 PM CDT us Marilee Nye MOWER MECHANIC-SPRAY GUN REPAIRER HELPER LAB - POINT OF CARE ORDER BOBO Final Result * MICROALB/CREAT RATIO URINE RANDOM PANEL (08/07/2023 12:44 PM CDT) Pathologist [facility] Creatinine Urine 229.54 mg/dL [facility] ACCOUNT BILL Microalbumin Urine 0.8 mg/dL [facility] ACCOUNT BILL Microalbumin/Crea tinine Ratio 3 <30 mg/g [facility] ACCOUNT BILL Comment: FASTING 08/07/2023 12:4 4 PM CDT 08/07/2023 Narrative Resulting Agency Comment Lab Testing performed at: [place] [address] [address] [id number] us Spenser Collins MD LAB - URINE CHEMISTRY ORDERABLES Final Result [facility] ACCOUNT BILL [address] [place] [address] * PAP IG LB+CT+NG+TV+HPV APTIMA RFLX 16,18/45 (02/22/2022 2:36 PM ILLUMINATOR) Diagnosis [facility] ACCOUNT BILL Comment:NEGATIVE FOR INTRAEP ITHELIAL LESION OR MALIGNANCY. Specimen Adequacy [facility] ACCOUNT BILL Comment: Satisfactory for evaluation. Endocervical and/or squamous metaplastic cells (endocervical component) are present. Clinician Provided ICD10 [facility] ACCOUNT BILL Comment: Z01.419 Z87.42 Z11.3 Z86.19 Performed by [facility] ACCOUNT BILL Comment:Nikkie Trivedi Cytot echnologist (ASCP) Comment . [facility] ACCOUNT BILL Note [facility] ACCOUNT BILL Comment: The Pap smear is a screening test designed to aid in the detection of premalignant and malignant conditions of the uterine cervix. It is not a diagnostic procedure and should not be used as the sole means of detecting cervical cancer. Both false-positive and false-negative reports do occur. . IGLBP CPT Code Automation [facility] ACCOUNT BILL Comment: This liquid based ThinPrep(R) pap test was screened with the use of an image guided system. Human papillomavirus Aptima Negative Negative [facility] ACCOUNT BILL Comment: This nucleic acid amplification test detects fourteen high-risk HPV types (16,18,31,33,35,39,45,51,52,56,58,59,66,68) without differentiation. HPV Genotype Reflexed [facility] ACCOUNT BILL Comment:Criteria not met, HP V Genotype not performed. Chlamydia trachomatis LOIS Negative Negative [facility] ACCOUNT BILL GC LOIS Negative Negative [facility] ACCOUNT BILL Trichomonas vaginalis by LOIS Negative Negative [facility] ACCOUNT BILL PART OF UTERINE CERVIX / Unknown 02/22/2022 2:36 PM ILLUMINATOR 02/23/2022 Narrative [facility] ACCOUNT BILL - 02/24/2022 1:09 PM ILLUMINATOR Source.............Cervix;Endocervix No. of containers..01 ThinPrep Vial Resulting Agency Comment Lab Testing performed at: [address] [id number] Marcus Diggs MD LAB - PATHOLOGY/CYTOLOGY SAV MALDONADO Final Result [facility] ACCOUNT BILL [address] [place] [address] from Last 3 Months or Most Recently Relevant to Health Maintenance Insurance [facility] Care Teams Customer Account Specialist Relationship Specialty Start Date End Date Shaye Appiah MD [address] [facility] [address] [place] [address] PCP - General Internal Medicine 01/20/22
--- NOTE | 2024-11-04 14:24 | ED.NAVMDI ---
HPI - Nausea/Vomiting/Diarrhea General Chief complaint: Nausea/Vomiting/Diarrhea <NATY Oswald Last Filed: 11/04/24 14:31> Stated complaint: N/V-head pressure/burning behind L eye <NATY Oswald Last Filed: 11/04/24 14:31> Time Seen by Provider: 11/04/24 14:24 <NATY Oswald Last Filed: 11/04/24 14:31> Focused HPI: Patient is a 29-year-old female who presents the ED via EMS with report of nausea, vomiting, headache. Patient [place] she suddenly developed nausea and vomiting. 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 Was unable to drive any further. Call for EMS. Began having a pain/burning in L sided periorbital region after the vomiting. States this is still present. Does not feel like a typical ABDI. Denies hx of migraines. States she had similar N/V 2 weeks ago and was seen in the ED at that time, dx'd with gastroenteritis. Did not have ABDI at that time. Reports epigastric abdominal pain, diarrhea, constipation, fevers, vision changes. GENERAL: Well-appearing, obese with BMI of 37.6, and in no acute distress. HEAD: Normocephalic, atraumatic. EYES: PERRL/EOMI, conjunctiva clear. No pain with eye movements CHEST: Clear to auscultation. ?No respiratory distress. HEART: Regular rate and rhythm.? ABD: Mild TTP in epigastric region. Normoactive BS NEURO: ?Alert and oriented x3. Patient screened in triage and initial orders placed.? ?Additional care and disposition to be based upon?diagnostic testing and treatment. <NATY Oswald Last Filed: 11/04/24 14:31> Source: patient <NATY Oswald Last Filed: 11/04/24 14:31> Mode of arrival: EMS <NATY Oswald Last Filed: 11/04/24 14:31> Limitations: no limitations <NATY Oswald Filed: 11/04/24 14:31> History of Present Illness HPI Narrative: Agree with HPI. <Robert White MD - Last Filed: 11/04/24 17:46> Related Data Allergies/Adverse reactions: Allergies Allergy/AdvReac Type Severity Reaction Status Date / Time No Known Allergies Allergy Verified 11/04/24 12:36 <Jennifer Whitney PA-C - Last Filed: 11/04/24 14:31> Review of Systems Review of Systems: All systems reviewed & are unremarkable except as noted in HPI and below <Robert White MD - Last Filed: 11/04/24 17:46> Constitutional: Constitutional: Reports no additional constitutional complaints <Robert White MD - Last Filed: 11/04/24 17:46> Cardiovascular: Cardiovascular: Reports no additional cardiovascular complaints <Robert White MD - Last Filed: 11/04/24 17:46> Respiratory: Respiratory: Reports no additional respiratory complaints <Robert White MD - Last Filed: 11/04/24 17:46> Gastrointestinal: Gastrointestinal: Reports no additional gastrointestinal complaints <Robert White MD - Last Filed: 11/04/24 17:46> Genitourinary: Genitourinary: Reports no additional female genitourinary complaints <Robert White MD - Last Filed: 11/04/24 17:46> PMFSH Past Medical History Medical History: Medical History (Updated 11/04/24 @ 17:45 by Robert White MD) Healthy female adult <Jennifer Whitney PA-C - Last Filed: 11/04/24 14:31> Exam Narrative: GENERAL: Well-appearing, well-nourished, and in no acute distress. HEAD: Normocephalic, atraumatic. ENT: Mucous membranes moist. CHEST: Clear to auscultation. No respiratory distress. HEART: Regular rate and rhythm. Normal peripheral pulses. ABDOMEN: Soft, nontender, nondistended. EXTREMITIES: Normal range of motion. No edema. SKIN: Warm, dry, no rash. NEURO: Alert and oriented x3. PSYCH: Normal mood and affect. <Robert White MD - Last Filed: 11/04/24 17:46> Course Course Emergency Course: Feels improved after IV fluid as well as antiemetics and reflux medication. Appropriate for discharge home. <Robert White MD - Last Filed: 11/04/24 17:46> Vital Signs Vital signs: Vital Signs Temperature 98.2 F 11/04/24 12:31 Pulse Rate 108 H 11/04/24 12:31 Respiratory Rate 20 11/04/24 12:31 Blood Pressure 142/95 H 11/04/24 12:31 Pulse Oximetry 98 11/04/24 12:31 Oxygen Delivery Room Air 11/04/24 12:31 Temperature 98.2 F 11/04/24 12:31 Pulse Rate 94 11/04/24 16:28 Respiratory Rate 14 11/04/24 16:28 Blood Pressure 123/76 11/04/24 16:28 Pulse Oximetry 100 11/04/24 16:28 Oxygen Delivery Room Air 11/04/24 12:31 <Jennifer Whitney PA-C - Last Filed: 11/04/24 14:31> Vital Signs Temperature 98.2 F 11/04/24 12:31 Pulse Rate 108 H 11/04/24 12:31 Respiratory Rate 20 11/04/24 12:31 Blood Pressure 142/95 H 11/04/24 12:31 Pulse Oximetry 98 11/04/24 12:31 Oxygen Delivery Room Air 11/04/24 12:31 Temperature 98.2 F 11/04/24 12:31 Pulse Rate 94 11/04/24 16:28 Respiratory Rate 14 11/04/24 16:28 Blood Pressure 123/76 11/04/24 16:28 Pulse Oximetry 100 11/04/24 16:28 Oxygen Delivery Room Air 11/04/24 12:31 <Robert White MD - Last Filed: 11/04/24 17:46> MDM - Nausea/Vomiting/Diarrhea MDM Narrative Medical decision making narrative: MSE by ANISHA in triage. <Jennifer Whitney PA-C - Last Filed: 11/04/24 14:31> Lab Data Result diagrams: 11/04/24 15:14 11/04/24 15:22 <NATY Oswald Last Filed: 11/04/24 14:31> Labs: Lab Results 11/04/24 11/04/24 11/04/24 Range/Units 15:13 15:14 15:15 WBC 18.4 H (4.5-10.0) K/mm3 RBC 5.26 (4.2-5.4) M/mm3 Hgb 13.8 (12.0-15.0) g/dL Hct 43.4 (37.0-47.0) % MCV 82.5 (80-100) fl MCH 26.2 (26-34) pg MCHC 31.8 L (32-36) g/dl RDW 14.8 H (11.5-14.5) % Plt Count 306 (150-375) k/mm3 MPV 10.8 H (7.4-10.4) fl Immature Gran % (Auto) 0.4 (0-0.5) % Neut % (Auto) 86.4 H (45.5-73.1) % Lymph % (Auto) 8.3 L (18.3-44.2) % Door % (Auto) 4.5 (2.6-8.5) % Eos % (Auto) 0.1 (0-4.4) % Baso % (Auto) 0.3 (0.2-1.2) % Lymph # (Auto) 1.53 (0.9-3.2) K/mm3 Door # (Auto) 0.8 H (0.1-0.6) K/mm3 Eos # (Auto) 0.0 (0-0.3) K/mm3 Baso # (Auto) 0.1 (0.0-0.1) K/mm3 Abs Immat Gran (auto) 0.07 H (0.00-0.031) K/mm3 Absolute Neuts (auto) 15.9 H (1.3-6.7) K/mm3 Absolute Nucleated RBC 0.000 (0.0-0.012) K/mm3 Nucleated RBC % 0.0 (0.0-0.2) % Sodium 136 L (137-145) mmol/L Potassium 4.8 (3.4-5.0) mmol/L Chloride 105 (98-107) mmol/L Carbon Dioxide 21 L (22-30) mmol/L Anion Gap 10 (4-12) mmol/L BUN 13 (7-17) mg/dL Creatinine 0.62 L (0.7-1.0) mg/dL Estim Creat Clear Calc 144 ml/min Estimated GFR > 60 (59 - ) Glucose 270 H (65-110) mg/dL Calcium 8.6 (8.4-10.2) mg/dL Total Bilirubin 0.4 (0.2-1.3) mg/dL AST 35 (14-36) U/L ALT 35 (6-35) U/L Alkaline Phosphatase 80 (38-126) U/L Total Protein 8.6 H (6.3-8.2) g/dL Albumin 4.7 (3.5-5.1) g/dL Lipase 166 (23-300) U/L Urine Color Yellow (Yellow) Urine Appearance Clear (Clear) Urine pH 5.0 (5.0-9.0) Ur Specific [place] 1.037 H (1.001-1.035) Urine Protein 3+ H (Negative) mg/dL Urine Glucose (UA) 3+ H (Negative) mg/dL Urine Ketones 2+ H (Negative) mg/dL Ur Blood (Man) Negative (Negative) Urine Nitrate Negative (Negative) Urine Bilirubin Negative (Negative) Urine Urobilinogen 0.2 (<2.0) mg/dL Add Ur Microanalysis Reviewed Leukocyte Esterase Rfl Negative (Negative) JOHN PAUL/UL Urine RBC 0-2 (0-2) /hpf Urine WBC 0-5 (0-3) /hpf Ur Squamous Epith Cells None seen (Few) /hpf Urine Bacteria None seen /hpf Urine Casts 11-20 Hyaline Casts Present (None) /lpf POC Urine HCG, Qual Negative (Negative) Influenza A (RT-PCR) Negative (Negative) Influenza B (RT-PCR) Negative (Negative) RSV (RT-PCR) Negative (Negative) SARS-CoV-2 RNA (RT-PCR) Negative (Negative) 11/04/24 Range/Units 15:22 WBC (4.5-10.0) K/mm3 RBC (4.2-5.4) M/mm3 Hgb (12.0-15.0) g/dL Hct (37.0-47.0) % MCV (80-100) fl MCH (26-34) pg MCHC (32-36) g/dl RDW (11.5-14.5) % Plt Count (150-375) k/mm3 MPV (7.4-10.4) fl Immature Gran % (Auto) (0-0.5) % Neut % (Auto) (45.5-73.1) % Lymph % (Auto) (18.3-44.2) % Door % (Auto) (2.6-8.5) % Eos % (Auto) (0-4.4) % Baso % (Auto) (0.2-1.2) % Lymph # (Auto) (0.9-3.2) K/mm3 Door # (Auto) (0.1-0.6) K/mm3 Eos # (Auto) (0-0.3) K/mm3 Baso # (Auto) (0.0-0.1) K/mm3 Abs Immat Gran (auto) (0.00-0.031) K/mm3 Absolute Neuts (auto) (1.3-6.7) K/mm3 Absolute Nucleated RBC (0.0-0.012) K/mm3 Nucleated RBC % (0.0-0.2) % Sodium (137-145) mmol/L Potassium (3.4-5.0) mmol/L Chloride (98-107) mmol/L Carbon Dioxide (22-30) mmol/L Anion Gap (4-12) mmol/L BUN (7-17) mg/dL Creatinine 0.60 L (0.7-1.0) mg/dL Estim Creat Clear Calc 148 ml/min Estimated GFR > 60 (59 - ) Glucose (65-110) mg/dL Calcium (8.4-10.2) mg/dL Total Bilirubin (0.2-1.3) mg/dL AST (14-36) U/L ALT (6-35) U/L Alkaline Phosphatase (38-126) U/L Total Protein (6.3-8.2) g/dL Albumin (3.5-5.1) g/dL Lipase (23-300) U/L Urine Color (Yellow) Urine Appearance (Clear) Urine pH (5.0-9.0) Ur Specific [place] (1.001-1.035) Urine Protein (Negative) mg/dL Urine Glucose (UA) (Negative) mg/dL Urine Ketones (Negative) mg/dL Ur Blood (Man) (Negative) Urine Nitrate (Negative) Urine Bilirubin (Negative) Urine Urobilinogen (<2.0) mg/dL Add Ur Microanalysis Leukocyte Esterase Rfl (Negative) JOHN PAUL/UL Urine RBC (0-2) /hpf Urine WBC (0-3) /hpf Ur Squamous Epith Cells (Few) /hpf Urine Bacteria /hpf Urine Casts Hyaline Casts (None) /lpf POC Urine HCG, Qual (Negative) Influenza A (RT-PCR) (Negative) Influenza B (RT-PCR) (Negative) RSV (RT-PCR) (Negative) SARS-CoV-2 RNA (RT-PCR) (Negative) <Jennifer Whitney PA-C - Last Filed: 11/04/24 14:31> Lab Results 11/04/24 11/04/24 11/04/24 Range/Units 15:13 15:14 15:15 WBC 18.4 H (4.5-10.0) K/mm3 RBC 5.26 (4.2-5.4) M/mm3 Hgb 13.8 (12.0-15.0) g/dL Hct 43.4 (37.0-47.0) % MCV 82.5 (80-100) fl MCH 26.2 (26-34) pg MCHC 31.8 L (32-36) g/dl RDW 14.8 H (11.5-14.5) % Plt Count 306 (150-375) k/mm3 MPV 10.8 H (7.4-10.4) fl Immature Gran % (Auto) 0.4 (0-0.5) % Neut % (Auto) 86.4 H (45.5-73.1) % Lymph % (Auto) 8.3 L (18.3-44.2) % Door % (Auto) 4.5 (2.6-8.5) % Eos % (Auto) 0.1 (0-4.4) % Baso % (Auto) 0.3 (0.2-1.2) % Lymph # (Auto) 1.53 (0.9-3.2) K/mm3 Door # (Auto) 0.8 H (0.1-0.6) K/mm3 Eos # (Auto) 0.0 (0-0.3) K/mm3 Baso # (Auto) 0.1 (0.0-0.1) K/mm3 Abs Immat Gran (auto) 0.07 H (0.00-0.031) K/mm3 Absolute Neuts (auto) 15.9 H (1.3-6.7) K/mm3 Absolute Nucleated RBC 0.000 (0.0-0.012) K/mm3 Nucleated RBC % 0.0 (0.0-0.2) % Sodium 136 L (137-145) mmol/L Potassium 4.8 (3.4-5.0) mmol/L Chloride 105 (98-107) mmol/L Carbon Dioxide 21 L (22-30) mmol/L Anion Gap 10 (4-12) mmol/L BUN 13 (7-17) mg/dL Creatinine 0.62 L (0.7-1.0) mg/dL Estim Creat Clear Calc 144 ml/min Estimated GFR > 60 (59 - ) Glucose 270 H (65-110) mg/dL Calcium 8.6 (8.4-10.2) mg/dL Total Bilirubin 0.4 (0.2-1.3) mg/dL AST 35 (14-36) U/L ALT 35 (6-35) U/L Alkaline Phosphatase 80 (38-126) U/L Total Protein 8.6 H (6.3-8.2) g/dL Albumin 4.7 (3.5-5.1) g/dL Lipase 166 (23-300) U/L Urine Color Yellow (Yellow) Urine Appearance Clear (Clear) Urine pH 5.0 (5.0-9.0) Ur Specific [place] 1.037 H (1.001-1.035) Urine Protein 3+ H (Negative) mg/dL Urine Glucose (UA) 3+ H (Negative) mg/dL Urine Ketones 2+ H (Negative) mg/dL Ur Blood (Man) Negative (Negative) Urine Nitrate Negative (Negative) Urine Bilirubin Negative (Negative) Urine Urobilinogen 0.2 (<2.0) mg/dL Add Ur Microanalysis Reviewed Leukocyte Esterase Rfl Negative (Negative) JOHN PAUL/UL Urine RBC 0-2 (0-2) /hpf Urine WBC 0-5 (0-3) /hpf Ur Squamous Epith Cells None seen (Few) /hpf Urine Bacteria None seen /hpf Urine Casts 11-20 Hyaline Casts Present (None) /lpf POC Urine HCG, Qual Negative (Negative) Influenza A (RT-PCR) Negative (Negative) Influenza B (RT-PCR) Negative (Negative) RSV (RT-PCR) Negative (Negative) SARS-CoV-2 RNA (RT-PCR) Negative (Negative) 11/04/24 Range/Units 15:22 WBC (4.5-10.0) K/mm3 RBC (4.2-5.4) M/mm3 Hgb (12.0-15.0) g/dL Hct (37.0-47.0) % MCV (80-100) fl MCH (26-34) pg MCHC (32-36) g/dl RDW (11.5-14.5) % Plt Count (150-375) k/mm3 MPV (7.4-10.4) fl Immature Gran % (Auto) (0-0.5) % Neut % (Auto) (45.5-73.1) % Lymph % (Auto) (18.3-44.2) % Door % (Auto) (2.6-8.5) % Eos % (Auto) (0-4.4) % Baso % (Auto) (0.2-1.2) % Lymph # (Auto) (0.9-3.2) K/mm3 Door # (Auto) (0.1-0.6) K/mm3 Eos # (Auto) (0-0.3) K/mm3 Baso # (Auto) (0.0-0.1) K/mm3 Abs Immat Gran (auto) (0.00-0.031) K/mm3 Absolute Neuts (auto) (1.3-6.7) K/mm3 Absolute Nucleated RBC (0.0-0.012) K/mm3 Nucleated RBC % (0.0-0.2) % Sodium (137-145) mmol/L Potassium (3.4-5.0) mmol/L Chloride (98-107) mmol/L Carbon Dioxide (22-30) mmol/L Anion Gap (4-12) mmol/L BUN (7-17) mg/dL Creatinine 0.60 L (0.7-1.0) mg/dL Estim Creat Clear Calc 148 ml/min Estimated GFR > 60 (59 - ) Glucose (65-110) mg/dL Calcium (8.4-10.2) mg/dL Total Bilirubin (0.2-1.3) mg/dL AST (14-36) U/L ALT (6-35) U/L Alkaline Phosphatase (38-126) U/L Total Protein (6.3-8.2) g/dL Albumin (3.5-5.1) g/dL Lipase (23-300) U/L Urine Color (Yellow) Urine Appearance (Clear) Urine pH (5.0-9.0) Ur Specific [place] (1.001-1.035) Urine Protein (Negative) mg/dL Urine Glucose (UA) (Negative) mg/dL Urine Ketones (Negative) mg/dL Ur Blood (Man) (Negative) Urine Nitrate (Negative) Urine Bilirubin (Negative) Urine Urobilinogen (<2.0) mg/dL Add Ur Microanalysis Leukocyte Esterase Rfl (Negative) JOHN PAUL/UL Urine RBC (0-2) /hpf Urine WBC (0-3) /hpf Ur Squamous Epith Cells (Few) /hpf Urine Bacteria /hpf Urine Casts Hyaline Casts (None) /lpf POC Urine HCG, Qual (Negative) Influenza A (RT-PCR) (Negative) Influenza B (RT-PCR) (Negative) RSV (RT-PCR) (Negative) SARS-CoV-2 RNA (RT-PCR) (Negative) <Robert White MD - Last Filed: 11/04/24 17:46> Imaging Data Radiologist's impression: ITS Impressions Head CT 11/04/24 15:33 IMPRESSION: 1. No acute intracranial abnormality. Abdomen/Pelvis CT 11/04/24 15:36 IMPRESSION: 1. No CT evidence for an acute process in the abdomen and pelvis at this time. 2. Fatty liver. <Robert White MD - Last Filed: 11/04/24 17:46> Discharge Plan Discharge Clinical Impression: Nausea & vomiting <Jennifer Whitney PA-C - Last Filed: 11/04/24 14:31> Patient Disposition: Home <Jennifer Whitney PA-C - Last Filed: 11/04/24 14:31> Condition: Stable <Jennifer Whitney PA-C - Last Filed: 11/04/24 14:31> Instructions: Acute Nausea and Vomiting (ED) <NATY Oswald Last Filed: 11/04/24 14:31> Additional Instructions: Return to the emergency department if you develop severe abdominal pain, severe nausea and vomiting to the point where you are unable to keep down fluids, if you develop chest pain or difficulty breathing, blood in your stool, dizziness or fainting, or if you develop any other new or concerning symptoms as these could be signs of more serious medical illness. Try to stay well hydrated. <NATY Oswald Last Filed: 11/04/24 14:31> Patient Language: Estonian <NATY Oswald Last Filed: 11/04/24 14:31> Prescriptions: New ondansetron 4 mg tablet,disintegrating 4 mg PO Q6H PRN (Reason: nausea and vomiting) Qty: 10 0RF pantoprazole 20 mg tablet,delayed release (DR/EC) 20 mg PO HS 28 Days Qty: 28 0RF dicyclomine 20 mg tablet 20 mg PO QID Qty: 20 0RF No Action metronidazole 500 mg tablet 500 mg PO Q8H Qty: 21 0RF ondansetron 4 mg tablet,disintegrating 4 mg PO Q8H PRN (Reason: nausea and vomiting) Qty: 10 0RF <NATY Oswald Last Filed: 11/04/24 14:31> Follow-up/Referrals: PHYSICIAN NOT ON STAFF,NONSTAFF [Primary Care Provider] - 1 Week <NATY Oswald Last Filed: 11/04/24 14:31>
--- OUTSIDE RECORDS SUMMARY | 2024-11-04 14:43 | XMS_ITS | Clinical Summary ---
Author Organization [facility] Address [address] [place] [address] Care Team Providers Care Warehouse Driver Name Role Phone Shaye Appiah MD Primary Care Provider [phone] Source Comments [facility],non-owned Affiliates and Associated Physician Practices is amultiple site organization consisting of ambulatory clinics and hospital sitesin [place], [place], [place] and [place]. This disclosure is being madepursuant to the Care Everywhere program and may not contain all information available regarding this patient. Last updated 17.[facility] Allergies No known active allergies Medications * [...] hyperglycemia, without long-term current use of insulin ([facility]) Take 2 (two) tablets by mouth every evening 90 tablet 1 05/01/19 25 Active Semaglutide (2 MG/DOSE) 8 MG/3ML Subcutaneous Solution Pen-injector (Ozempic (2 MG/DOSE))Indicat ions:Type 2 diabetes mellitus with hyperglycemia, without long-term current use of insulin ([facility]) Inject 2 (two) mg subcutaneously every 7 [...] Sex Assigned at Female 02/12/2021 9:07 AM BANK CREDIT CARD COLLECTION CLERK Legal Sex Female 2:20 PM CDT Gender Identity Female 02/12/2021 9:07 AM BANK CREDIT CARD COLLECTION CLERK Sexual Orientation Straight 02/12/2021 9: 07 AM BANK CREDIT CARD COLLECTION CLERK Last Filed Vital Signs Vital Sign Reading [...] Description 11/22/2024 11:45 AM CDT Office Visit [facility] - Endocrinology [address] [address] [place] [id number] [address] Health Maintenance Due Date Last [...] LB+CT+NG+TV+HPV APTIMA RFLX Routine 02/22/2022 2:36 PM BANK CREDIT CARD COLLECTION CLERK History of abnormal cervical Pap smear Well woman exam with routine gynecological exam Screen for STD (sexually transmitted disease) History of HPV infection from Last 3 Months or Most Recently Relevant to Health Maintenance Results * HEPATITIS C ANTIBODY W RFLX PCR (04/30/2024 2:49 PM CDT) Hepatitis C Antibody Non Reactive Non Reactive [facility] ACCOUNT BILL Comment: Performed at: - [facility] [address] [id number] [employer] Coxswain: Jhonatan Ponce PhD, Phone: [phone] Interpretation Comment [facility] ACCOUNT BILL Comment: Not infected with HCV unless early or acute infection is suspected (which may be delayed in an immunocompromised individual), or other evidence exists to indicate HCV infection. Blood BLOOD SPECIMEN / Unknown 04/30/2024 2:49 PM CDT 04/30/2024 Narrative [facility] ACCOUNT BILL - 05/01/2024 8:11 AM CDT Performed at: - [facility] [address] [id number] [employer] Coxswain: Jhonatan Ponce PhD, Phone: [phone] us Arianna Chaney MANAGER MOLECULAR-SHOE ASSOCIATE LAB - CHEMISTRY ORDERABLE S Final Result Performing Organization Address City/[facility]/ZIP Co de Phone Number [facility] ACCOUNT BILL [address] [place] [address] * HIV-1 HIV-2 ANTIBODY + HIV P24 AG PANEL (04/30/2024 2:49 PM CDT) Pathologist [facility] HIV Screen 4th Generation w Reflex Non Reactive Non Reactive [facility] ACCOUNT BILL Comment: HIV-1/HIV-2 antibodies and HIV-1 p24 antigen were NOT detected. There is no laboratory evidence of HIV infection. HIV Negative Blood BLOOD SPECIMEN / Unknown 04/30/2024 2:49 PM CDT 04/30/2024 Narrative [facility] ACCOUNT BILL - 05/01/2024 9:10 AM CDT Performed at: 01 - [address] [id number] [employer] Coxswain: Jhonatan Ponce PhD, Phone: [phone] Arianna Chaney APRN-SHOE ASSOCIATE LAB - CHEMISTRY ORDERABLE S Final Result Performing Organization Address [facility] Co de Phone Number [facility] ACCOUNT BILL [address] [place] [address] * (ABNORMAL) BASIC METABOLIC PANEL (CALCIUM TOTAL) (04/30/2024 2:49 PM CDT) [facility] Glucose 131(H) 70 - 99 mg/dL [facility] [...] - 05/08/2024 11:11 AM CDT Performed at: [place] [address], [place] [id number] [employer] Coxswain: Saad Lezama [facility], Phone: [phone] us Marilee Nye MANAGER MOLECULAR-SHOE ASSOCIATE LAB - CHEMISTRY ORDERABLE S Final Result [facility] INSURANCE BILL [address] [place] [address] * HEMOGLOBIN A1C - POINT OF CARE (HgbA1C) (04/30/2024 2:29 PM CDT) [facility] Hemoglobin A1c POCT 7.9 % Expiration Date 01/24/25 Lot # [id number] QC Verified Yes Yes Blood BLOOD SPECIMEN / Unknown 04/30/2024 2:29 PM CDT us Marilee Nye MANAGER MOLECULAR-SHOE ASSOCIATE LAB - POINT OF CARE ORDER BOB[facility] Final Result * MICROALB/CREAT RATIO URINE RANDOM PANEL (08/07/2023 12:44 PM CDT) Pathologist [facility] Creatinine Urine 229.54 mg/dL [facility] ACCOUNT BILL Microalbumin Urine 0.8 mg/dL [facility] ACCOUNT BILL Microalbumin/Crea tinine Ratio 3 <30 mg/g [facility] ACCOUNT BILL Comment: FASTING 08/07/2023 12:4 4 PM CDT 08/07/2023 Narrative Resulting Agency Comment Lab Testing performed at: [place] [address] [address] [id number] us Spenser Collins MD LAB - URINE CHEMISTRY ORDERABLES Final Result [facility] ACCOUNT BILL [address] [place] [address] * PAP IG LB+CT+NG+TV+HPV APTIMA RFLX 16,18/45 (02/22/2022 2:36 PM BANK CREDIT CARD COLLECTION CLERK) Diagnosis [facility] ACCOUNT BILL Comment:NEGATIVE FOR INTRAEP [...] UTERINE CERVIX / Unknown 02/22/2022 2:36 PM BANK CREDIT CARD COLLECTION CLERK 02/23/2022 Narrative [facility] ACCOUNT BILL - 02/24/2022 1:09 PM BANK CREDIT CARD COLLECTION CLERK Source.............Cervix;Endocervix No. of containers..01 ThinPrep Vial Resulting Agency Comment Lab Testing performed at: [address] [id number] Marcus Diggs MD LAB - PATHOLOGY/CYTOLOGY SAV MALDONADO Final Result [facility] ACCOUNT BILL [address] [place] [address] from Last 3 Months or Most Recently Relevant to Health Maintenance Insurance [facility] Care Teams Warehouse Driver Relationship Specialty Start Date End Date Shaye Appiah MD [address] [facility] [address] [place] [address] PCP - General Internal Medicine 01/20/22
[2024-11-04 15:17] LABS: BEDSIDEPREGUCG Negative (Negative)
[2024-11-04 15:23] LABS: Hematocrit 43.4 % (37.0-47.0); Hemoglobin 13.8 g/dL (12.0-15.0); Immature Granulocyte Percent A 0.4 % (0-0.5); Lymphocytes Absolute Auto 1.53 K/mm3 (0.9-3.2); Mean Corpuscular HGB Conc 31.8 g/dl (32-36); Mean Corpuscular Hemoglobin 26.2 pg (26-34); Mean Corpuscular Volume 82.5 fl (80-100); Nucleated Red Blood Cells Absolute Auto 0.000 K/mm3 (0.0-0.012); Nucleated Red Blood Cells Perc 0.0 % (0.0-0.2); Platelet Count Result 306 k/mm3 (150-375); Red Blood Count 5.26 M/mm3 (4.2-5.4); White Blood Count 18.4 K/mm3 (4.5-10.0)
[2024-11-04 15:32] LABS: Alanine Aminotransferase 35 U/L (6-35); Albumin Level 4.7 g/dL (3.5-5.1); Alkaline Phosphatase 80 U/L (38-126); Anion Gap 10 mmol/L (4-12); Aspartate Amino Transferase 35 U/L (14-36); Bilirubin,Total 0.4 mg/dL (0.2-1.3); Blood Urea Nitrogen 13 mg/dL (7-17); Calcium 8.6 mg/dL (8.4-10.2); Carbon Dioxide 21 mmol/L (22-30); Chloride 105 mmol/L (98-107); Estimated CRCL calculation 144 ml/min; Estimated Glomerular Filt Rate > 60; Glucose 270 mg/dL (65-110); Lipase 166 U/L (23-300); Potassium 4.8 mmol/L (3.4-5.0); Sodium 136 mmol/L (137-145); Total Protein 8.6 g/dL (6.3-8.2)
[2024-11-04 15:38] LABS: Add Urine Microscopic? YES; Appearance Urine Clear (Clear); Glucose Urine UA 3+ mg/dL (Negative); Leukocyte Esterase Ur Negative LEU/UL (Negative); Need Manual Microscopic Reviewed; Nitrate Urine Negative (Negative); Specific Grav Ur 1.037 (1.001-1.035)
[2024-11-04 15:59] LABS: Estimated CRCL calculation 148 ml/min; Estimated Glomerular Filt Rate > 60
[2024-11-04 15:59] LABS: Influenza A QL RT-PCR Negative (Negative); Influenza B QL RT-PCR Negative (Negative); RSV RNA, RT-PCR Negative (Negative); SARS-CoV-2 RNA PCR Negative (Negative)
[2024-11-04] MEDS: SODIUM CHLORIDE 0.9% IV 1,000 ML 999 ML IV CONT (16:13)
[2024-11-04] MEDS: FAMOTIDINE 20 MG/2 ML VIAL IV PUSH (16:14)
[2024-11-04] MEDS: METOCLOPRAMIDE HCL INJ 10 MG/2 ML VIAL IV PUSH (16:21)
[2024-11-04 16:28] VITALS: BP 123/76; PULSE 94; RESP 14; O2SAT 100
[2024-11-04 17:56] VITALS: BP 100/69; PULSE 105; RESP 15; O2SAT 100
== END 2024-11-04 18:03 | disposition home or self-care (01) ==
PROVIDERS: Physician Assistant; Emergency Provider Emergency Medicine
DX: R11.2 Nausea with vomiting, unspecified (principal); Z20.822 Contact with and (suspected) exposure to COVID-19
CPT/HCPCS: 36415; 70450; 74177; 80053; 81001; 81025; 83690; 85025; 87637; 96361; 96374; 96375; 99284; J1200; J2765; J7030; Q9967